=== PATIENT | male | born 1975 | race Caucasian/White ===

== ENCOUNTER 2017-08-15 18:03 | Emergency (ER) | payer SELFPAY ==
[~2017-08-15] VITALS: Ht 175.3 cm; Wt 111.1 kg
[~2017-08-15 18:03] MED LIST: HYDR-3454 PO; MUPI1OIN5 NS; ONDAN4ODT PO; OXYC-12 PO
--- OUTSIDE RECORDS SUMMARY | 2017-08-15 18:08 | XMS REPORT | Continuity of Care Document ---
Demographics Preferred Language Unknown Marital Status Unknown Orthodox Affiliation Unknown Race Unknown Ethnic Group Unknown Author Author [facility] Address Unknown Phone Unavailable Allergies Active Description Code Type Severity Reaction Onset Reported/Identified Relationship to Patient Clinical Status Yes No Known Drug Allergies [id number] Drug Allergy Unknown N/A 11/25/2012 Yes neoprene neoprene Mild N/A 01/11/2016 Medications There is no data. Problems Date Dx Coded Attending Type Code Diagnosis Diagnosed By 04/05/2009 461.0 ACUTE MAXILLARY SINUSITIS 04/05/2009 V70.5 PREEMPLOYMENT/ PRESCHOOL EXAM 06/04/2011 Ot 327.23 OBSTRUCTIVE SLEEP APNEA (ADULT) (PEDIATR 11/25/2012 JOSE REAVES MD Ot 550.90 UNILAT INGUINAL HERNIA 01/01/2016 JOSE REAVES MD Ot 550.90 UNILAT INGUINAL HERNIA 01/01/2016 JOSE REAVES MD Ot V72.83 EXAM PRE-OPERATIVE NEC 01/01/2016 JOSE REAVES MD Ot V74.8 SCREEN-BACTERIAL DIS NEC 01/01/2016 THI LÓPEZ MD Ot 813.05 FX RADIUS HEAD-CLOSED 01/01/2016 THI LÓPEZ MD Ot E000.8 OTHER EXTERNAL CAUSE STATUS 01/01/2016 THI LÓPEZ MD Ot E928.9 ACCIDENT NOS 01/02/2016 JOSE REAVES MD Ot 550.90 UNILAT INGUINAL HERNIA 01/02/2016 JOSE REAVES MD Ot V72.83 EXAM PRE-OPERATIVE NEC 01/02/2016 JOSE REAVES MD Ot V74.8 SCREEN-BACTERIAL DIS NEC 01/02/2016 THI LÓPEZ MD Ot 813.05 FX RADIUS HEAD-CLOSED 01/02/2016 THI LÓPEZ MD Ot E000.8 OTHER EXTERNAL CAUSE STATUS 01/02/2016 THI LÓPEZ MD Ot E928.9 ACCIDENT NOS 01/04/2016 GRETCHEN DPM, YAQUELIN Q Ot M72.2 PLANTAR FASCIAL FIBROMATOSIS 01/04/2016 GRETCHEN DPM, YAQUELIN Q Ot M76.61 ACHILLES TENDINITIS, RIGHT LEG 01/04/2016 GRETCHEN DPM, YAQUELIN Q Ot Z01.818 ENCOUNTER FOR OTHER PREPROCEDURAL EXAMIN 01/07/2016 GRETCHEN DPM, YAQUELIN Q Ot M72.2 PLANTAR FASCIAL FIBROMATOSIS 01/07/2016 GRETCHEN DPM, YAQUELIN Q Ot M76.61 ACHILLES TENDINITIS, RIGHT LEG 01/07/2016 GRETCHEN DPM, YAQUELIN Q Ot Z01.818 ENCOUNTER FOR OTHER PREPROCEDURAL EXAMIN 01/11/2016 JOSE REAVES MD Ot 550.90 UNILAT INGUINAL HERNIA 01/11/2016 JOSE REAVES MD Ot V72.83 EXAM PRE-OPERATIVE NEC 01/11/2016 JOSE REAVES MD Ot V74.8 SCREEN-BACTERIAL DIS NEC 01/11/2016 THI LÓPEZ MD Ot 813.05 FX RADIUS HEAD-CLOSED 01/11/2016 THI LÓPEZ MD Ot E000.8 OTHER EXTERNAL CAUSE STATUS 01/11/2016 THI LÓPEZ MD Ot E928.9 ACCIDENT NOS 01/11/2016 GRETCHEN DPM, YAQUELIN Q Ot M72.2 PLANTAR FASCIAL FIBROMATOSIS 01/11/2016 GRETCHEN DPM, YAQUELIN Q Ot M76.61 ACHILLES TENDINITIS, RIGHT LEG Procedures There is no data. Results Test Result Range Methicillin resistant Staphylococcus aureus (MRSA) screening culture - 11:25 Methicillin resistant Staphylococcus aureus (MRSA) screening culture NEG NRG Encounters ACCT No. Visit Date/Time Discharge Status Pt. Type Provider Facility Loc./Unit Complaint [id number] 04/05/2009 09:43:00 04/05/2009 23:59:59 CLS Outpatient [id number] 05/06/2012 15:10:05 RECURRING [id number] 01/11/2016 11:11:00 01/11/2016 16:40:00 DIS Outpatient GRETCHEN DPM, YAQUELIN Q [facility] PLANTAR FASCITIS [id number] 01/04/2016 05:38:00 01/04/2016 11:00:00 DIS Outpatient GRETCHEN DPM, YAQUELIN Q [facility] PREOP PLANTAR FASCITIS [id number] 11/25/2012 10:30:00 11/25/2012 16:30:00 DIS Outpatient JOSE REAVES MD [facility] SDC RIGHT INGUINAL HERNIA [id number] 11/23/2012 10:04:00 11/23/2012 23:59:59 CLS Outpatient JOSE REAVES MD [facility] PREOP RIGHT INGUINAL HERNIA [id number] 11/11/2012 10:12:00 11/11/2012 23:59:59 CLS Outpatient MARIBEL HENDRICKS, THI Devi [facility] RAD RT ELBOW RADIAL HEAD FRACTURE [id number] 11/06/2012 09:02:00 11/06/2012 23:59:59 CLS Outpatient [id number] 06/03/2011 19:56:00 Document Registration
[2017-08-15 18:29] LABS: BASOPHILS # (AUTO) 0.1 10^3/uL (0.0-0.1); BASOPHILS % (AUTO) 1 % (0-10); EOSINOPHILS # (AUTO) 0.3 10^3/uL (0.0-0.3); EOSINOPHILS % (AUTO) 3 % (0-10); HEMATOCRIT 42 % (40-54); HEMOGLOBIN 14.8 G/DL (13.3-17.7); LYMPHOCYTES # (AUTO) 2.6 X 10^3 (1.0-4.0); LYMPHOCYTES % (AUTO) 23 % (12-44); MEAN CORPUSCULAR HEMOGLOBIN 33 PG (25-34); MEAN CORPUSCULAR HGB CONC 36 G/DL (32-36); MEAN CORPUSCULAR VOLUME 91 FL (80-99); MEAN PLATELET VOLUME 9.7 FL (7.4-10.4); MONOCYTES # (AUTO) 0.7 X 10^3 (0.0-1.0); MONOCYTES % (AUTO) 7 % (0-12); NEUTROPHILS # (AUTO) 7.4 X 10^3 (1.8-7.8); NEUTROPHILS % (AUTO) 67 % (42-75); PLATELET COUNT 357 10^3/uL (130-400); RED BLOOD COUNT 4.56 10^6/uL (4.35-5.85); RED CELL DISTRIBUTION WIDTH 12.1 % (10.0-14.5); WHITE BLOOD COUNT 11.1 10^3/uL (4.3-11.0)
[2017-08-15] MEDS ORDERED: NS 250 ML (IVPB) BAG IV ONE (18:30)
[2017-08-15] MEDS ORDERED: IOHEXOL 350 MG/ML 100 ML (OMNIPAQUE 350) VIAL IV ONE (18:30)
[2017-08-15 18:41] LABS: PROTHROMBIN TIME PATIENT 13.1 SEC (12.2-14.7)
[2017-08-15 18:42] LABS: FIBRIN DEGRADATION PRODUCTS 0.3 UG/ML (0.00-0.49)
[2017-08-15 18:44] LABS: ALANINE AMINOTRANSFERASE 45 U/L (0-55); ALBUMIN 4.4 GM/DL (3.2-4.5); ALKALINE PHOSPHATASE 63 U/L (40-136); BILIRUBIN,TOTAL 1.3 MG/DL (0.1-1.0); BUN/CREATININE RATIO 14; CALCIUM 10.9 MG/DL (8.5-10.1); CARBON DIOXIDE 22 MMOL/L (21-32); CHLORIDE 102 MMOL/L (98-107); CREATININE SERUM 1.05 MG/DL (0.60-1.30); GFR ESTIMATED > 60; GLUCOSE 118 MG/DL (70-105); POTASSIUM 3.5 MMOL/L (3.6-5.0); SODIUM 138 MMOL/L (135-145); TOTAL PROTEIN 7.9 GM/DL (6.4-8.2)
--- NOTE | 2017-08-15 19:16 | ED Neurological Problem ---
General Chief Complaint: Neuro-Stroke Like Symptoms Stated Complaint: DIZZINESS/TINGLING R ARM Nursing Triage Note: PT AMBULATED TO [facility], ACCOMPANIED BY HIS GIRLFRIEND. GIRLFRIEND STATES THAT THE PT WAS WITH HIS FRIEND WHO IS A FORMER EMS AT APPROXIMATELY 1630 WHEN THE PT STARTED FEELING WEIRD. PT BECAME LIGHT HEADED, HAD TINGLING IN R ARM, AND TROUBLE WITH EXPRESSIVE APHASIA. THE GF STATED THE FRIEND THOUGHT THE PT'S BACK WAS OUT OF LINE AND POPPED THE PT'S BACK. SYMPTOMS DID NOT IMPROVE, SO THEY FRIEND CHECKED THE PT'S BLOOD SUGAR WHICH WAS 97. GIRLFRIEND RODE WITH PT TO ED. GIRLFRIEND STATES WHILE THE PT WAS DRIVING THE PT WOULD PUT HIS R ARM UP TO HIS HEAD AND THEN JUST LET IT DROP REPEATEDLY, AND WAS ALSO TRYING TO STOP THE CAR WITH BOTH FEET. LAST WELL KNOWN TIME WAS APPROXIMATELY 1630. Nursing Sepsis Screen: No Definite Risk Source: patient, family Exam Limitations: no limitations History of Present Illness Date Seen by Provider: Aug 15, 2017 Time Seen by Provider: 18:16 Initial Comments This 42 year old young man presents to the ER by private vehicle with sudden onset of difficulty speaking and confusion that started at approximately 16:30. He has been dieting and occasionally has low blood sugars, but his blood sugar on assessment was 92. He also reported associated numbness in his hands bilaterally. He had a friend pop his back and neck after the onset of symptoms. C-collar was placed by nursing staff on assessment. reports text messages starting at 16:30 did not make sense. When she was back with him she noted him leaning to the right while walking. While attempting to drive he was also repeatedly raising his right hand up to his head and dropping it. He was also attempting to operate the foot pedals with both feet. NIH stroke score was 2 for mild dysphasia and dysarthria. He also reports some mild alteration in his peripheral vision. Allergies and Home Medications Allergies Uncoded Allergies: neoprene (Allergy, Mild, 01/11/16) Home Medications Hydrocodone/Acetaminophen 1 Each Tablet, 1-2 TAB PO Q4-6HR PRN for PAIN Prescribed by: YAQUELIN GODINEZ on 01/11/16 4718 Patient Home Medication List Home Medication List Reviewed: Yes Review of Systems Constitutional: no symptoms reported Eyes: See HPI Ears, Nose, Mouth, Throat: mouth pain (dental infection) Respiratory: no symptoms reported Cardiovascular: no symptoms reported Gastrointestinal: nausea Genitourinary: no symptoms reported Musculoskeletal: no symptoms reported Skin: no symptoms reported Psychiatric/Neurological: See HPI Endocrine: No Symptoms Reported Hematologic/Lymphatic: No Symptoms Reported Past Rtrvgcy-Phmhbm-Gliwxs Hx Patient Social History Alcohol Use: Denies Use Recreational Drug Use: No Recent Foreign Travel: No Contact w/Someone Who Travel: No Recent Infectious Disease Expo: No Physical Abuse: No Sexual Abuse: No Past Medical History Surgeries: Yes (INGUINAL HERNIA) Respiratory: No Cardiac: No Neurological: No Reproductive Disorders: No Gastrointestinal: No Musculoskeletal: Yes (FEET) Endocrine: No HEENT: Yes (dental infection) Cancer: No Psychosocial: No Nursing Suicide Risk Score: 0 Integumentary: No Blood Disorders: No Physical Exam Vital Signs Vital Signs - First Documented 08/15/17 18:05 Temp 97.7 Pulse 102 Resp 18 B/P (MAP) 150/92 (111) O2 Delivery Room Air Capillary Refill : Less Than 3 Seconds General Appearance: WD/WN, mild distress HEENT: PERRL/EOMI, normal ENT inspection Respiratory: lungs clear, normal breath sounds, no respiratory distress, no accessory muscle use Cardiovascular: no edema, tachycardia Gastrointestinal: normal bowel sounds, non tender, soft Extremities: normal inspection, no pedal edema Neurologic/Psychiatric: no motor/sensory deficits, alert, normal mood/affect, oriented x 3 Crainal Nerves: PERRL, abnormal speech Coordination/Gait: normal finger to nose, other (normal heel to bhakta) Motor/Sensory: no motor deficit, no sensory deficit Skin: normal color, warm/dry Stroke NIH Stroke Scale Assessment Select: Initial Level of Consciousness: 0=Alert (0), Level of Consciousness- Questions: 0=Answers both month/age (0), LOC Commands: 0=Performs both tasks (0) , Visual [place]: 0=No visual loss (0), Facial Movement (Facial Paresis): 0= Normal symmetrical mnt (0), Motor Function-Arms Right: 0=No drift (0), Motor Function-Arms Left: 0=No drift (0), Motor Function-Legs Left: 0=No drift (0), Limb Ataxia: 0=Absent (0), Sensory: 0=Normal:no loss (0), Best Language: 1=Mild to moderat aphasia (1), Dysarthria: 1=Mild to moderate loss (1), Extinction & Inattention: 0=No abnormality (0), Total: 2 Focused Exam Lactate Level 08/15/17 20:36: Lactic Acid Level 2.68*H 08/15/17 22:30: Lactic Acid Level 1.07 Lactic Acid Level Laboratory Tests Test 08/15/17 20:36 08/15/17 22:30 Lactic Acid Level 2.68 MMOL/L (0.50-2.00) *H 1.07 MMOL/L (0.50-2.00) Progress/Results/Core Measures Lab Results Laboratory Tests Test 08/15/17 18:16 08/15/17 18:18 08/15/17 19:39 08/15/17 20:36 Range/Units Glucometer 94 70-110 MG/DL White Blood Count 11.1 H 4.3-11.0 10^3/uL Red Blood Count 4.56 4.35-5.85 10^6/uL Hemoglobin 14.8 13.3-17.7 G/DL Hematocrit 42 40-54 % Mean Corpuscular Volume 91 80-99 FL Mean Corpuscular Hemoglobin 33 25-34 PG Mean Corpuscular Hemoglobin Concent 36 32-36 G/DL Red Cell Distribution Width 12.1 10.0-14.5 % Platelet Count 357 130-400 10^3/uL Mean Platelet Volume 9.7 7.4-10.4 FL Neutrophils (%) (Auto) 67 42-75 % Lymphocytes (%) (Auto) 23 12-44 % Monocytes (%) (Auto) 7 0-12 % Eosinophils (%) (Auto) 3 0-10 % Basophils (%) (Auto) 1 0-10 % Neutrophils # (Auto) 7.4 1.8-7.8 X 10^3 Lymphocytes # (Auto) 2.6 1.0-4.0 X 10^3 Monocytes # (Auto) 0.7 0.0-1.0 X 10^3 Eosinophils # (Auto) 0.3 0.0-0.3 10^3/uL Basophils # (Auto) 0.1 0.0-0.1 10^3/uL Prothrombin Time 13.1 12.2-14.7 SEC INR Comment 1.0 0.8-1.4 Activated Partial Thromboplast Time 28 24-35 SEC D-Dimer 0.30 0.00-0.49 UG/ML Sodium Level 138 135-145 MMOL/L Potassium Level 3.5 L 3.6-5.0 MMOL/L Chloride Level 102 98-107 MMOL/L Carbon Dioxide Level 22 21-32 MMOL/L Anion Gap 14 5-14 MMOL/L Blood Urea Nitrogen 15 7-18 MG/DL Creatinine 1.05 0.60-1.30 MG/DL Estimat Glomerular Filtration Rate > 60 BUN/Creatinine Ratio 14 Glucose Level 118 H 70-105 MG/DL Calcium Level 10.9 H 8.5-10.1 MG/DL Total Bilirubin 1.3 H 0.1-1.0 MG/DL Aspartate Amino Transf (AST/SGOT) 31 5-34 U/L Alanine Aminotransferase (ALT/SGPT) 45 0-55 U/L Alkaline Phosphatase 63 40-136 U/L Troponin I < 0.30 <0.30 NG/ML C-Reactive Protein High Sensitivity 0.12 0.00-0.50 MG/DL Total Protein 7.9 6.4-8.2 GM/DL Albumin 4.4 3.2-4.5 GM/DL Serum Alcohol < 10 <10 MG/DL Urine Color YELLOW Urine Clarity CLEAR Urine pH 7 5-9 Urine Specific [place] 1.015 L 1.016-1.022 Urine Protein NEGATIVE NEGATIVE Urine Glucose (UA) NEGATIVE NEGATIVE Urine Ketones 3+ H NEGATIVE Urine Nitrite NEGATIVE NEGATIVE Urine Bilirubin NEGATIVE NEGATIVE Urine Urobilinogen NORMAL NORMAL MG/DL Urine Leukocyte Esterase 1+ H NEGATIVE Urine RBC (Auto) 2+ H NEGATIVE Urine RBC 5-10 H /HPF Urine WBC 0-2 /HPF Urine Squamous Epithelial Cells RARE /HPF Urine Crystals NONE /LPF Urine Bacteria NONE /HPF Urine Casts NONE /LPF Urine Mucus NEGATIVE /LPF Urine Culture Indicated NO Urine Opiates Screen NEGATIVE NEGATIVE Urine Oxycodone Screen NEGATIVE NEGATIVE Urine Methadone Screen NEGATIVE NEGATIVE Urine Propoxyphene Screen NEGATIVE NEGATIVE Urine Barbiturates Screen NEGATIVE NEGATIVE Ur Tricyclic Antidepressants Screen NEGATIVE NEGATIVE Urine Phencyclidine Screen NEGATIVE NEGATIVE Urine Amphetamines Screen POSITIVE H NEGATIVE Urine Methamphetamines Screen NEGATIVE NEGATIVE Urine Benzodiazepines Screen NEGATIVE NEGATIVE Urine Cocaine Screen NEGATIVE NEGATIVE Urine Cannabinoids Screen NEGATIVE NEGATIVE Lactic Acid Level 2.68 *H 0.50-2.00 MMOL/L Test 08/15/17 21:10 08/15/17 21:23 08/15/17 22:30 Range/Units CSF Tube Number 4 CSF Appearance CLEAR CSF Color COLORLESS CSF WBC 0 0-5 CELLS CSF RBC 0 0-0 CELLS CSF Lymphocytes % CSF Mononuclear WBCs % CSF Polynuclear WBCs % CSF Glucose 56 50-80 MG/DL CSF Total Protein 27 15-40 MG/DL Lactic Acid Level 1.07 0.50-2.00 MMOL/L My Orders Orders - ALLISON RUTHERFORD MD Cbc With Automated Diff (08/15/17 18:20) Protime With Inr (08/15/17 18:20) Partial Thromboplastin Time (08/15/17 18:20) Comprehensive Metabolic Panel (08/15/17 18:20) Fibrin Degradation Products (08/15/17 18:20) Troponin I (08/15/17 18:20) Ua Culture If Indicated (08/15/17 18:20) Chest 1 View, Ap/Pa Only (08/15/17 18:20) Ekg Tracing (08/15/17 18:20) Nothing By Mouth (08/16/17 Breakfast) Accucheck Stat ONCE (08/15/17 18:20) Saline Lock/Iv-Start (08/15/17 18:20) Saline Lock/Iv-Start (08/15/17 18:20) Vital Signs Stroke Patient Q15M (08/15/17 18:20) O2 (08/15/17 18:20) Intake & Output 06,14,22 (08/15/17 18:20) Monitor-Rhythm Ecg Trace Only (08/15/17 18:20) Dysphagia Screening Tool (08/15/17 18:20) Post Thrombolytic Adminstratio (08/15/17 18:20) Ct Angio Head/Neck (08/15/17 18:20) Ct Cervical Spine Wo (08/15/17 18:20) Alcohol (08/15/17 18:20) Drug Screen Stat (Urine) (08/15/17 18:20) Iohexol Injection (Omnipaque 350 Mg/Ml 1 (08/15/17 18:30) Ns (Ivpb) (Sodium Chloride 0.9%) (08/15/17 18:30) Pharmacy Communication (Pharmacy Communi (08/15/17 18:25) Hs C Reactive Protein (08/15/17 19:47) Lorazepam Injection (Ativan Injection) (08/15/17 20:00) Ondansetron Injection (Zofran Injectio (08/15/17 20:00) Blood Culture (08/15/17 20:02) Lactic Acid Analyzer (08/15/17 20:02) Ceftriaxone Injection (Rocephin Injectio (08/15/17 20:15) Tick Panel With Lyme Eia (08/15/17 20:24) Csf Cell Count (08/15/17 20:40) Csf Glucose (08/15/17 20:40) Csf Total Protein (08/15/17 20:40) Csf Culture (08/15/17 20:40) Virus Culture (08/15/17 20:40) Midazolam Injection (Versed Injection) (08/15/17 20:43) Lidocaine 2% Injection 20 Ml (Xylocaine (08/15/17 20:47) Fentanyl Injection (Sublimaze Injection (08/15/17 20:57) Ns Iv 1000 Ml (Sodium Chloride 0.9%) (08/15/17 23:26) Midazolam Injection (Versed Injection) (08/15/17 23:30) Fentanyl Injection (Sublimaze Injection (08/15/17 23:30) Lidocaine 2% Injection 20 Ml (Xylocaine (08/15/17 23:30) Medications Given in ED Current Medications Medications Dose Ordered Sig/Moon Route Start Time Stop Time Status Last Admin Dose Admin Ceftriaxone Sodium 2000 mg/ Sodium Chloride 100 ml @ 200 mls/hr ONCE ONCE IV 08/15/17 20:15 08/15/17 20:44 DC 08/15/17 21:31 200 MLS/HR Fentanyl Citrate 100 mcg ONCE ONCE IVP 08/15/17 23:30 08/15/17 23:31 DC 08/15/17 21:03 100 MCG Iohexol 75 ml ONCE ONCE IV 08/15/17 18:30 08/15/17 18:31 DC 08/15/17 19:04 75 ML Lidocaine HCl 20 ml ONCE ONCE INJ 08/15/17 23:30 08/15/17 23:31 DC 08/15/17 20:53 20 ML Lorazepam 0.5 mg ONCE ONCE IVP 08/15/17 20:00 08/15/17 20:01 DC 08/15/17 19:58 0.5 MG Midazolam HCl 5 mg ONCE ONCE IVP 08/15/17 23:30 08/15/17 23:31 DC 08/15/17 20:51 5 MG Ondansetron HCl 8 mg ONCE ONCE IVP 08/15/17 20:00 08/15/17 20:01 DC 08/15/17 19:58 8 MG Sodium Chloride 250 ml ONCE ONCE IV 08/15/17 18:30 08/15/17 18:31 DC 08/15/17 19:05 80 ML Sodium Chloride 1,000 ml @ 0 mls/hr Q0M ONCE IV 08/15/17 23:26 08/15/17 23:28 DC 08/15/17 21:17 1,000 MLS/HR Vital Signs/I&O 08/15/17 18:05 Temp 97.7 Pulse 102 Resp 18 B/P (MAP) 150/92 (111) O2 Delivery Room Air 08/16/17 00:00 Intake Total 100 ml Balance 100 ml Blood Pressure Mean: 111 Finger Stick Blood Glucose: 94 Blood Glucose Action Taken: rn notified Progress Note #1: Time: 20:27 Progress Note Stroke activation was paged during initial assessment of this patient. NIH stroke score was 2. Patient initially was fairly stable with minor deficits. However, at around 19:30 he became acutely more agitated and confused with more pronounced aphasia. Speech was becoming very garbled with no discernible words. He was also becoming rather agitated. Dr. Palma, stroke neurologist at [facility], was contacted at 19:40. Case was reviewed with him including the negative imaging studies. Although stroke cannot be completely ruled out at this point, he advised against TPA as most current research does not indicate TPA in strokes of this nature improve outcomes. At this point patient was also greater than 3 hours from time of onset which increases the risk with TPA. Further information was obtained from his common-law about the medications he is taking. He had been on phentermine at the same dose since May which explains the amphetamines in his urine. The remainder of the toxicology screen was negative. It was also noted that patient has been on Flagyl 6 days for a dental infection. Flagyl has known side effects of encephalitis and aseptic meningitis. For this reason Dr. Palma recommends lumbar puncture. Anesthesia has been consulted and LP is pending. Rocephin 2 g IV will be administered. Blood cultures and lactic acid are also being drawn. Patient has done some mowing this spring so tick bites are also possible. Tick panel has been ordered. Patient was given Ativan 0.5 mg IV to help with his agitation. He also became nauseated and is Zofran 8 mg IV was given. Progress Note #2: Time: 20:39 Progress Note Anesthesia is now present for LP. Progress Note #3: Time: 21:33 Progress Note LP was successfully performed by anesthesia. Patient did require Versed 5 mg and fentanyl 100 g during the procedure for agitation. He also required supplemental oxygen support. CSF cell counts are normal. Opening pressure was 27. Glucose and protein are pending. Patient is receiving 2 g of Rocephin. Progress Note #4: Time: 22:40 Progress Note Patient is now alert and able to talk some. He is confused. He does not know his family members or where he is but his speech is fairly clear. Case was reviewed with Dr. Rogers who believes patient would be best served in a facility with immediate neurological services and MRI. Case was discussed with Dr. Glass (hospitalist) and Dr. Lr (neurologist) at [facility]. They accept patient. Transfer is pending. CSF was clear with no sign of meningitis. Initial ECG Impression Date: Aug 15, 2017 Initial ECG Impression Time: 18:13 Initial ECG Rate: 94 Initial ECG Rhythm: Normal Sinus Initial ECG Intervals: Normal Initial ECG Impression: Normal Comment Normal sinus rhythm with no ST elevation or depression. No abnormal intervals or axis deviation. Diagonstic Imaging: CT Plain Films/CT/US/NM/MRI: head Comments CT head and neck viewed by me and report reviewed. See report below: NAME: SHAWNA FRANCO [facility] REC#: [id number] PT STATUS: REG ER : 1975 PHYSICIAN: ALLISON RUTHERFORD MD ADMIT DATE: 08/15/17/ER Draft Date of Exam:08/15/17 CT ANGIO HEAD/NECK PROCEDURE: CT angiography of the head and CT angiography of the neck with and without contrast. TECHNIQUE: Contiguous noncontrast images were obtained from the skull base through the vertex. After intravenous contrast administration, helical CT angiography of the neck was performed. Source data was reformatted into multiple MIP projections. Delayed post contrast acquisition was also obtained. INDICATION: Dysphagia. Bilateral hand numbness. Dizziness. Tingling. COMPARISON: None FINDINGS: CTA neck: Included portions of the aortic arch are unremarkable. The proximal portions of the bilateral common carotid arteries are heavily obscured secondary to metallic beam hardening artifact from contrast bolus within the left subclavian vein at the SVC. There is also mild motion artifact. The carotid bulbs are grossly unremarkable. The bilateral internal carotid arteries are patent. There is no evidence of intraluminal thrombosis, dissection, nor focal stenosis. Within the posterior circulation, the vertebral arteries appear to be codominant. The proximal portions of the vertebral arteries are also heavily obscured secondary to same reasons stated above. Otherwise, the mid and distal portions of the vertebral arteries appear to be patent. There is no evidence of dissection or intraluminal thrombosis. Bony structures show no acute abnormalities, although there is moderate image degradation secondary to motion artifact. Surrounding soft tissue structures are unremarkable. Included portions of the lung apices are clear. CTA [place] of [place]: There is normal appearance of the bilateral anterior and middle cerebral arteries. There is no evidence of intraluminal thrombosis, aneurysm, nor vascular malformation. Within the posterior circulation, there is normal appearance to the basilar artery. Posterior cerebral arteries are normal in appearance as well. There is no evidence of intraluminal thrombosis, aneurysm, nor vascular malformation. Posterior communicating arteries are not well visualized on either side. CT head: Ventricles and cortical sulci are normal in size and contour. There is no mass effect or midline shift. There is no loss of hernandez-white matter junction differentiation to suggest acute territorial infarct. There is no evidence of intra-or extra-axial intracranial hemorrhage. No extra-axial masses or fluid collections are seen. Postcontrast images show no abnormal areas of enhancement. Bony calvarium is intact. Included portions of the paranasal sinuses and mastoid air cells are clear. IMPRESSION: 1. Proximal portions of bilateral common carotid arteries and bilateral vertebral arteries are heavily obscured secondary to metallic beam hardening artifact and motion artifact, but otherwise, CTA of the head and neck is unremarkable. 2. No acute intracranial abnormality. No CT evidence of acute infarct, mass, nor hemorrhage. Dictated on workstation # [id number] Dict: 08/15/171909 Trans: 08/15/171929 PENDING SALE TO [facility] [id number] Interpreted by: ALEJANDRO NICKERSON MD Diagonstic Imaging: CT Plain Films/CT/US/NM/MRI: c-spine Comments CT cervical spine viewed by me and report reviewed. See report below: NAME: SHAWNA FRANCO [facility] REC#: [id number] PT STATUS: REG ER : 1975 PHYSICIAN: ALLISON RUTHERFORD MD ADMIT DATE: 08/15/17/ER Draft Date of Exam:08/15/17 CT CERVICAL SPINE WO PROCEDURE: CT cervical spine without contrast. TECHNIQUE: Multiple contiguous axial images were obtained through the cervical spine without the use of intravenous contrast. Sagittal and coronal reformations were then performed. INDICATION: Sudden onset dysphasia. Bilateral hand numbness. Dizziness. Tingling. COMPARISON: Radiograph dated 04/05/2012. FINDINGS: Evaluation with static alignment demonstrates straightening of normal lordotic curvature of the cervical spine. This may be related to positioning as well as spasm. There is no significant anterolisthesis or retrolisthesis. There is no evidence of jumped facets. Vertebral body heights are maintained. There is no evidence of acute fracture. No bony fragments are seen within the spinal canal. 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 There is also multilevel degenerative changes consisting of intervertebral disc height loss with anterior and posterior disc osteophyte complex formations. Prevertebral and paravertebral soft tissue structures are unremarkable. Lung apices are not significantly included. IMPRESSION: 1. No CT evidence of acute fracture or dislocation of the cervical spine. 2. Mild multilevel degenerative changes. Dictated on workstation # [id number] Dict: 08/15/171928 Trans: 08/15/171934 [facility] [id number] Interpreted by: ALEJANDRO NICKERSON MD Diagonstic Imaging: Xray Plain Films/CT/US/NM/MRI: chest Comments Chest x-ray viewed by me and report reviewed. See report below: NAME: SHAWNA FRANCO [facility] REC#: [id number] PT STATUS: REG ER : 1975 PHYSICIAN: ALLISON RUTHERFORD MD ADMIT DATE: 08/15/17/ER Draft Date of Exam:08/15/17 CHEST 1 VIEW, AP/PA ONLY INDICATION: Sudden onset dysphasia. COMPARISON: None. EXAMINATION: Single frontal radiographic view of the chest was obtained. FINDINGS: Low inspiratory volumes with crowding of central hilar structures. Given this, pulmonary vasculature is likely within normal limits. Cardiac silhouette appears mildly prominent. Lungs are otherwise clear. There is no large effusion or pneumothorax. Bony structures show no gross acute abnormality. IMPRESSION: Mild prominent appearance of the cardiac silhouette and pulmonary vasculature. This, however, is likely artifactual and related to low inspiratory volume and portable technique. Otherwise, no acute cardiopulmonary process. Dictated on workstation # [id number] Dict: 08/15/171940 Trans: 08/15/171954 [facility] [id number] Interpreted by: ALEJANDRO NICKERSON MD Departure Impression Primary Impression: Encephalopathy Additional Impressions: Dysphasia Dysarthria Agitation Disposition: 02 XFER SHT-TRM HOSP Condition: Stable Transfer Transfer Facility: [facility] Method of Transfer: EMS Departure-Patient Inst. Referrals: NO,LOCAL PHYSICIAN (PCP/Family) Primary Care Physician ALLISON RUTHERFORD MD Aug 15, 2017 19:16
--- NOTE | 2017-08-15 19:31 | Diagnostic Imaging Report ---
PROCEDURE: CT angiography of the head and CT angiography of the neck with and without contrast. TECHNIQUE: Contiguous noncontrast images were obtained from the skull base through the vertex. After intravenous contrast administration, helical CT angiography of the neck was performed. Source data was reformatted into multiple MIP projections. Delayed post contrast acquisition was also obtained. INDICATION: Dysphagia. Bilateral hand numbness. Dizziness. Tingling. COMPARISON: None FINDINGS: CTA neck: Included portions of the aortic arch are unremarkable. The proximal portions of the bilateral common carotid arteries are heavily obscured secondary to metallic beam hardening artifact from contrast bolus within the left subclavian vein at the SVC. There is also mild motion artifact. The carotid bulbs are grossly unremarkable. The bilateral internal carotid arteries are patent. There is no evidence of intraluminal thrombosis, dissection, nor focal stenosis. Within the posterior circulation, the vertebral arteries appear to be codominant. The proximal portions of the vertebral arteries are also heavily obscured secondary to same reasons stated above. Otherwise, the mid and distal portions of the vertebral arteries appear to be patent. There is no evidence of dissection or intraluminal thrombosis. Bony structures show no acute abnormalities, although there is moderate image degradation secondary to motion artifact. Surrounding soft tissue structures are unremarkable. Included portions of the lung apices are clear. CTA [place] of [place]: There is normal appearance of the bilateral anterior and middle cerebral arteries. There is no evidence of intraluminal thrombosis, aneurysm, nor vascular malformation. Within the posterior circulation, there is normal appearance to the basilar artery. Posterior cerebral arteries are normal in appearance as well. There is no evidence of intraluminal thrombosis, aneurysm, nor vascular malformation. Posterior communicating arteries are not well visualized on either side. CT head: Ventricles and cortical sulci are normal in size and contour. There is no mass effect or midline shift. There is no loss of hernandez-white matter junction differentiation to suggest acute territorial infarct. There is no evidence of intra-or extra-axial intracranial hemorrhage. No extra-axial masses or fluid collections are seen. Postcontrast images show no abnormal areas of enhancement. Bony calvarium is intact. Included portions of the paranasal sinuses and mastoid air cells are clear. IMPRESSION: 1. Proximal portions of bilateral common carotid arteries and bilateral vertebral arteries are heavily obscured secondary to metallic beam hardening artifact and motion artifact, but otherwise, CTA of the head and neck is unremarkable. 2. No acute intracranial abnormality. No CT evidence of acute infarct, mass, nor hemorrhage. Dictated by: Dictated on workstation # [id number]
--- NOTE | 2017-08-15 19:35 | Diagnostic Imaging Report ---
PROCEDURE: CT cervical spine without contrast. TECHNIQUE: Multiple contiguous axial images were obtained through the cervical spine without the use of intravenous contrast. Sagittal and coronal reformations were then performed. INDICATION: Sudden onset dysphasia. Bilateral hand numbness. Dizziness. Tingling. COMPARISON: Radiograph dated 04/05/2012. FINDINGS: Evaluation with static alignment demonstrates straightening of normal lordotic curvature of the cervical spine. This may be related to positioning as well as spasm. There is no significant anterolisthesis or retrolisthesis. There is no evidence of jumped facets. Vertebral body heights are maintained. There is no evidence of acute fracture. No bony fragments are seen within the spinal canal. 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 There is also multilevel degenerative changes consisting of intervertebral disc height loss with anterior and posterior disc osteophyte complex formations. Prevertebral and paravertebral soft tissue structures are unremarkable. Lung apices are not significantly included. IMPRESSION: 1. No CT evidence of acute fracture or dislocation of the cervical spine. 2. Mild multilevel degenerative changes. Dictated by: Dictated on workstation # [id number]
[2017-08-15 19:46] LABS: BILIRUBIN,URINE NEGATIVE (NEGATIVE); CLARITY,URINE CLEAR; COLOR,URINE YELLOW; GLUCOSE, URINE (UA) NEGATIVE (NEGATIVE); KETONES,URINE 3+ (NEGATIVE); LEUKOCYTE ESTERASE ,URINE 1+ (NEGATIVE); NITRITE,URINE NEGATIVE (NEGATIVE); PH,URINE 7 (5-9); PROTEIN,URINE NEGATIVE (NEGATIVE); UROBILINOGEN,URINE NORMAL (NORMAL)
[2017-08-15 19:53] LABS: SQUAMOUS EPITHELIAL CELL,UR RARE /HPF; WBC,URINE 0-2 /HPF
--- NOTE | 2017-08-15 19:55 | Diagnostic Imaging Report ---
INDICATION: Sudden onset dysphasia. COMPARISON: None. EXAMINATION: Single frontal radiographic view of the chest was obtained. FINDINGS: Low inspiratory volumes with crowding of central hilar structures. Given this, pulmonary vasculature is likely within normal limits. Cardiac silhouette appears mildly prominent. Lungs are otherwise clear. There is no large effusion or pneumothorax. Bony structures show no gross acute abnormality. IMPRESSION: Mild prominent appearance of the cardiac silhouette and pulmonary vasculature. This, however, is likely artifactual and related to low inspiratory volume and portable technique. Otherwise, no acute cardiopulmonary process. Dictated by: Dictated on workstation # [id number]
[2017-08-15 20:00] LABS: AMPHETAMINE SCREEN, URINE POSITIVE (NEGATIVE); BARBITURATE SCREEN URINE NEGATIVE (NEGATIVE); BENZODIAZEPINES SCREEN URINE NEGATIVE (NEGATIVE); CANNABINOID SCREEN, URINE NEGATIVE (NEGATIVE); COCAINE SCREEN URINE NEGATIVE (NEGATIVE); METHADONE STAT NEGATIVE (NEGATIVE); METHAMPHETAMINE SCREEN URINE S NEGATIVE (NEGATIVE); OPIATE SCREEN URINE NEGATIVE (NEGATIVE); OXYCODONE STAT NEGATIVE (NEGATIVE); PROPOXYPHENE STAT NEGATIVE (NEGATIVE); TRICYCLIC ANTIDEPRESSANTS SCRE NEGATIVE (NEGATIVE)
[2017-08-15] MEDS ORDERED: LORazepam INJ 2 MG/ML (ATIVAN) VIAL IVP ONE (20:00)
[2017-08-15] MEDS ORDERED: ONDANSETRON 4 MG/2 ML (SDV) Z0FRAN IVP ONE (20:00)
[2017-08-15] MEDS ORDERED: cefTRIAXone INJECTION 2,000 MG in NS (IVPB) 100 ML IV ONE (20:15)
[2017-08-15] MEDS ORDERED: MIDAZOLAM 5 MG/5 ML (VERSED) VIAL ONE (20:43)
[2017-08-15] MEDS ORDERED: LIDOCAINE 2% 20 ML (XYLOCAINE) VIAL ONE (20:47)
[2017-08-15] MEDS ORDERED: fentaNYL INJECTION 100 MCG/2 ML AMP ONE (20:57)
[2017-08-15 21:22] LABS: APPEARANCE,CSF CLEAR; COLOR,CSF COLORLESS; CSF TUBE NUMBER 4; RED BLOOD CELL,CSF 0 CELLS (0-0); WHITE BLOOD CELL,CSF 0 CELLS (0-5)
[2017-08-15 21:41] LABS: CSF GLUCOSE 56 MG/DL (50-80); CSF TOTAL PROTEIN 27 MG/DL (15-40)
[2017-08-15] MEDS ORDERED: NS IV 1000 ML 1,000 ML IV ONE (23:26)
[2017-08-15] MEDS ORDERED: fentaNYL INJECTION 100 MCG/2 ML AMP IVP ONE (23:30)
[2017-08-15] MEDS ORDERED: LIDOCAINE 2% 20 ML (XYLOCAINE) VIAL INJ ONE (23:30)
[2017-08-15] MEDS ORDERED: MIDAZOLAM 5 MG/5 ML (VERSED) VIAL IVP ONE (23:30)
[2017-08-15 23:56] VITALS: BP 153/108
== END 2017-08-15 23:56 | disposition short-term general hospital (02) ==
LOC: EDUNIT# 18:03 → ER 18:05
DX: G93.40 Encephalopathy, unspecified (principal); R47.02 Dysphasia; R47.1 Dysarthria and anarthria; R45.1 Restlessness and agitation; R29.702 NIHSS score 2; Z86.73 Personal history of transient ischemic attack (TIA), and cerebral infarction without residual deficits; Z98.818 Other dental procedure status; Z88.8 Allergy status to other drugs, medicaments and biological substances
CPT/HCPCS: 36415; 70496; 70498; 71045; 72125; 80053; 80306; 80320; 81000; 82945; 82962; 83605; 84157; 84484; 85025; 85379; 85610; 85730; 86141; 86618; 86666; 86668; 86757; 87040; 87070; 87205; 87252; 89051; 93005; 93041; 96361; 96365; 96375; 99291

== ENCOUNTER 2020-08-22 02:41 | Emergency (ER) | payer BC ==
[~2020-08-22] VITALS: Ht 175.2 cm; Wt 122.4 kg
[~2020-08-22 02:41] MED LIST changes: -HYDR-3454 PO; +HYDR-3455 PO
[2020-08-22 02:50] VITALS: BP 153/122
[2020-08-22] MEDS ORDERED: ONDANSETRON 4 MG/2 ML (SDV) Z0FRAN ONE (02:54)
[2020-08-22] MEDS ORDERED: ONDANSETRON 4 MG/2 ML (SDV) Z0FRAN IVP ONE (03:00)
[2020-08-22 03:06] LABS: BASOPHILS # (AUTO) 0.1 10^3/uL (0.0-0.1); BASOPHILS % (AUTO) 1 % (0-10); EOSINOPHILS # (AUTO) 0.6 10^3/uL (0.0-0.3); EOSINOPHILS % (AUTO) 6 % (0-10); HEMATOCRIT 43 % (40-54); HEMOGLOBIN 14.7 g/dL (13.3-17.7); LYMPHOCYTES # (AUTO) 3.8 10^3/uL (1.0-4.0); LYMPHOCYTES % (AUTO) 33 % (12-44); MEAN CORPUSCULAR HEMOGLOBIN 32 pg (25-34); MEAN CORPUSCULAR HGB CONC 34 g/dL (32-36); MEAN CORPUSCULAR VOLUME 95 fL (80-99); MEAN PLATELET VOLUME 9.4 fL (9.0-12.2); MONOCYTES # (AUTO) 0.9 10^3/uL (0.0-1.0); MONOCYTES % (AUTO) 8 % (0-12); NEUTROPHILS % (AUTO) 52 % (42-75); PLATELET COUNT 374 10^3/uL (130-400); WHITE BLOOD COUNT 11.5 10^3/uL (4.3-11.0)
--- NOTE | 2020-08-22 03:08 | ED Neurological Problem ---
General Stated Complaint: LEFT ARM TINGELY,MIGRAINE,NO PERIPHERAL VISION Source: patient Exam Limitations: no limitations History of Present Illness Date Seen by Provider: Aug 22, 2020 Time Seen by Provider: 02:49 Initial Comments Patient to the ER by private conveyance from home with significant other chief complaint that he started having a headache, visual disturbances with loss of perception of his left peripheral vision while sitting on the couch about 10:00 tonight. He also started having some paresthesias feeling numbness and tingling of the left face and left arm down to his hand. No history of trauma. This happened similar in the past 3 years ago when he was worked up and found to have a migraine headache. He took a dose of Topamax 50 mg about an hour prior to arrival thinking it might help. No history of coronary disease or stroke. He is not a smoker. Only pain he is having is in his head that is centerline, nonthrobbing. He is known to [facility] for [facility]. He has been told in the past by urgent care that maybe he was hypoventilating and that was what was causing his symptoms. He notes he has been having a lot of stress because his live-in girlfriend has been out of work due to a broken leg. He says wh enever the stress gets worse so his symptoms and migraines. Patient's girlfriend notes that 3 years ago when this happened they went to the neurologist at [facility] and after a work-up with her allowed to go home. 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 He is not on any medications at this time. Other than the dose of topiramate that he took tonight he says he has not been on that for many months. Allergies and Home Medications Allergies Uncoded Allergies: neoprene (Allergy, Mild, 01/11/16) Home Medications Hydrocodone/Acetaminophen 1 Each Tablet, 1-2 TAB PO Q4-6HR PRN for PAIN Prescribed by: YAQUELIN GODINEZ on 01/11/16 2237 Patient Home Medication List Home Medication List Reviewed: Yes Review of Systems Review of Systems Constitutional: No chills, No diaphoresis Eyes: See HPI, Blindness; Denies Decreased Acuity, Denies Pain Ears, Nose, Mouth, Throat: denies ear pain, denies ear discharge Respiratory: No cough, No short of breath Cardiovascular: No chest pain, No edema Gastrointestinal: No abdominal pain, No constipation, No diarrhea; nausea; No vomiting Genitourinary: No discharge, No dysuria Musculoskeletal: No back pain, No joint pain Psychiatric/Neurological: Anxiety; Denies Depressed Endocrine: Denies Flushing, Denies Intolerance to Cold, Denies Intolerance to Heat Hematologic/Lymphatic: Denies Anemia, Denies Blood Clots All Other Systems Reviewed Negative Unless Noted: Yes Past Qnegtwj-[id number]-Wiasgr Hx Patient Social History Alcohol Use: Denies Use Smoking Status: Never a Smoker Past Medical History Surgeries: Yes (INGUINAL HERNIA) Respiratory: No Cardiac: No Neurological: No Reproductive Disorders: No Gastrointestinal: No Musculoskeletal: Yes (FEET) Endocrine: No HEENT: Yes (dental infection) Cancer: No Psychosocial: No Integumentary: No Blood Disorders: No Physical Exam Vital Signs Vital Signs - First Documented 08/22/20 03:45 O2 Flow Rate 2.00 Capillary Refill : Height, Weight, BMI Height: 5'9.00" Weight: 245lbs. 0.0oz. [id number]; 41.10 BMI Method:Stated General Appearance: WD/WN, moderate distress HEENT: PERRL/EOMI, pharynx normal Neck: full range of motion, normal inspection Respiratory: lungs clear, normal breath sounds, no respiratory distress, no accessory muscle use Cardiovascular: normal peripheral pulses, regular rate, rhythm Peripheral Pulses: 2+ Radial Pulses (R), 2+ Radial Pulses (L) Gastrointestinal: non tender, soft Extremities: normal range of motion, non-tender, normal capillary refill Neurologic/Psychiatric: alert, normal mood/affect, oriented x 3; No abnormal cerebellar tests, No abnormal gait; other (Diminished visual clinton in the left eye laterally) Crainal Nerves: normal hearing, normal speech, PERRL Coordination/Gait: normal finger to nose, normal gait Motor/Sensory: no motor deficit, no pronator drift, sensory deficit (Left eye lateral field diminished) Skin: normal color, warm/dry Stroke Onset of Symptoms Date of Onset of Symptoms: Aug 22, 2020 Time of Symptom Onset: 22:00 Onset of Symptoms: Yes Symptoms onset unknown: No NIH Stroke Scale Assessment Select: Initial Level of Consciousness: 0=Alert (0), Level of Consciousness- Questions: 0=Answers both month/age (0), LOC Commands: 0=Performs both tasks (0), Gaze: Normal (0), Visual [place]: 1=Partial hemianopia (1), Facial Movement (Facial Paresis): 0=Normal symmetrical mnt (0), Motor Function-Arms Right: 0=No drift (0), Motor Function-Arms Left: 0=No drift (0), Motor Function-Legs Right: 0=No drift (0), Motor Function-Legs Left: 0=No drift (0), Limb Ataxia: 0=Absent (0), Sensory: 0=Normal:no loss (0), Best Language: 0=No aphasia (0), Dysarthria: 0=Normal (0), Extinction & Inattention: 0=No abnormality (0), Total: 1 Stroke Thrombolytic Exclusion Age 18 or Over: No Acute intenal hemorrhage: No History of CVA: No Uncontrolled Coagulation Defec: No Intracranial Hemorrhage: No Severe Hypertension: No GI or Bleed: No Subarachnoid Hemorrhage: No Intracranial Neoplasm/Aneurysm: No Oral Anticoagulants: No Surgery or Trauma: No Puncture of Non-Compressible V: No Recent CPR: No Diabetic Hemorrhagic Retinopat: No Organ Biopsy: No Recent Obstetric Delivery: No Glucose: No (99) Significant Hepatic Dysfunctio: No NIH Stoke Scale >22: No Bacterial Endocarditis: No Pericarditis: No Improving Symptoms: Yes Platelets: No TPA Contraindication: No IV - TPa Received IV - TPa Procedure Performed?: No (Lack of evidence for benefit of use of TPA.) Progress/Results/Core Measures Results/Orders Lab Results Laboratory Tests Test 08/22/20 02:54 08/22/20 02:55 Range/Units Glucometer 99 70-110 MG/DL White Blood Count 11.5 H 4.3-11.0 10^3/uL Red Blood Count 4.56 4.30-5.52 10^6/uL Hemoglobin 14.7 13.3-17.7 g/dL Hematocrit 43 40-54 % Mean Corpuscular Volume 95 80-99 fL Mean Corpuscular Hemoglobin 32 25-34 pg Mean Corpuscular Hemoglobin Concent 34 32-36 g/dL Red Cell Distribution Width 12.1 10.0-14.5 % Platelet Count 374 130-400 10^3/uL Mean Platelet Volume 9.4 9.0-12.2 fL Immature Granulocyte % (Auto) 1 % Neutrophils (%) (Auto) 52 42-75 % Lymphocytes (%) (Auto) 33 12-44 % Monocytes (%) (Auto) 8 0-12 % Eosinophils (%) (Auto) 6 0-10 % Basophils (%) (Auto) 1 0-10 % Neutrophils # (Auto) 6.0 1.8-7.8 10^3/uL Lymphocytes # (Auto) 3.8 1.0-4.0 10^3/uL Monocytes # (Auto) 0.9 0.0-1.0 10^3/uL Eosinophils # (Auto) 0.6 H 0.0-0.3 10^3/uL Basophils # (Auto) 0.1 0.0-0.1 10^3/uL Immature Granulocyte # (Auto) 0.1 0.0-0.1 10^3/uL Prothrombin Time 12.4 12.2-14.7 SEC INR Comment 0.9 0.8-1.4 Activated Partial Thromboplast Time 31 24-35 SEC D-Dimer < 0.27 0.00-0.49 UG/ML Sodium Level 140 135-145 MMOL/L Potassium Level 3.8 3.6-5.0 MMOL/L Chloride Level 104 98-107 MMOL/L Carbon Dioxide Level 25 21-32 MMOL/L Anion Gap 11 5-14 MMOL/L Blood Urea Nitrogen 11 7-18 MG/DL Creatinine 1.02 0.60-1.30 MG/DL Estimat Glomerular Filtration Rate > 60 BUN/Creatinine Ratio 11 Glucose Level 106 H 70-105 MG/DL Calcium Level 9.5 8.5-10.1 MG/DL Corrected Calcium 9.3 8.5-10.1 MG/DL Total Bilirubin 1.0 0.1-1.0 MG/DL Aspartate Amino Transf (AST/SGOT) 31 5-34 U/L Alanine Aminotransferase (ALT/SGPT) 46 0-55 U/L Alkaline Phosphatase 74 40-136 U/L Troponin I < 0.028 <0.028 NG/ML Total Protein 7.9 6.4-8.2 GM/DL Albumin 4.2 3.2-4.5 GM/DL My Orders Orders - MIKAYLA VERDUZCO Ondansetron Injection (Zofran Injectio (08/22/20 03:00) Ondansetron Injection (Zofran Injectio (08/22/20 02:54) Code/Resuscitation (08/22/20 03:01) Cbc With Automated Diff (08/22/20 03:01) Protime With Inr (08/22/20 03:01) Partial Thromboplastin Time (08/22/20 03:01) Comprehensive Metabolic Panel (08/22/20 03:01) Fibrin Degradation Products (08/22/20 03:01) Troponin I (08/22/20 03:01) Ua Culture If Indicated (08/22/20 03:01) Chest 1 View, Ap/Pa Only (08/22/20 03:01) Ekg Tracing (08/22/20 03:01) Nothing By Mouth (08/22/20 Breakfast) Accucheck Stat ONCE (08/22/20 03:01) Ed Iv/Invasive Line Start (08/22/20 03:01) Ed Iv/Invasive Line Start (08/22/20 03:01) Vital Signs Stroke Patient Q15M (08/22/20 03:01) Ct Head Wo-R/O Stroke (08/22/20 03:01) O2 (08/22/20 03:01) Intake & Output 06,14,22 (08/22/20 03:01) Monitor-Rhythm Ecg Trace Only (08/22/20 03:01) Dysphagia Screening Tool (08/22/20 03:01) Lipid Panel (08/23/20 06:00) Fentanyl Inj (Sublimaze Injection) (08/22/20 03:30) Drug Screen Stat (Urine) (08/22/20 03:27) Ed Iv/Invasive Line Start (08/22/20 03:29) Ns Iv 500 Ml (Sodium Chloride 0.9%) (08/22/20 03:30) Promethazine Injection (Phenergan Injec (08/22/20 04:00) Promethazine Injection (Phenergan Injec (08/22/20 03:41) Ed Iv/Invasive Line Start (08/22/20 04:16) Ns Iv 1000 Ml (Sodium Chloride 0.9%) (08/22/20 04:30) Ct Angio Head/Neck (08/22/20 04:16) Iohexol Injection (Omnipaque 350 Mg/Ml 1 (08/22/20 05:00) Received Contrast (Hold Metformin- Contr (08/22/20 05:00) Sodium Chloride Flush (Catheter Flush Sy (08/22/20 05:00) Ns (Ivpb) (Sodium Chloride 0.9% Ivpb Bag (08/22/20 05:00) Medications Given in ED Current Medications Medications Dose Ordered Sig/Moon Route Start Time Stop Time Status Last Admin Dose Admin Fentanyl Citrate 50 mcg ONCE ONCE IVP 08/22/20 03:30 08/22/20 03:31 DC 08/22/20 03:28 50 MCG Iohexol 100 ml ONCE ONCE IV 08/22/20 05:00 08/22/20 05:01 08/22/20 04:51 75 ML Ondansetron HCl 8 mg ONCE ONCE IVP 08/22/20 03:00 08/22/20 03:02 DC 08/22/20 03:03 8 MG Promethazine HCl 25 mg ONCE ONCE IVP 08/22/20 04:00 08/22/20 04:01 DC 08/22/20 03:49 25 MG Sodium Chloride 10 ml NEEDED PRN IV 08/22/20 05:00 08/22/20 04:52 10 ML Sodium Chloride 100 ml ONCE ONCE IV 08/22/20 05:00 08/22/20 05:01 08/22/20 04:51 80 ML Sodium Chloride 500 ml @ 0 mls/hr Q0M ONCE IV 08/22/20 03:30 08/22/20 03:31 DC 08/22/20 03:42 500 MLS/HR Vital Signs/I&O 08/22/20 08/22/20 08/22/20 02:50 02:50 03:45 Temp 36.4 Pulse 107 107 Resp 18 18 B/P (MAP) 153/122 (132) 153/122 Pulse Ox 96 96 98 O2 Delivery Room Air Nasal Cannula O2 Flow Rate 2.00 Progress Progress Note #1: Time: 03:10 Progress Note At rest patient has a headache that he describes as similar to his migraines but comes with visual field disturbance, paresthesias down his left face and left hand. He has sensation intact that is symmetric to the contralateral side when we test his face and hand. This could be an atypical migraine however we did activate a stroke and he has an NIH of one-point for his visual field disturbances. We will get a CT of his head. His glucose was 99. Other possibilities could be a subarachnoid hemorrhage. He has been under a lot of stress which could lead more towards triggering complex migraine. Zofran 8 mg were ordered for his nausea. His blood pressure significantly elevated around 158/109 on arrival. Afebrile, aseptic vital signs otherwise. 2017 he presented with a similar migraine but with right sided numbness and weakness in his upper extremity. At that time he had CT of the head, lumbar puncture and He was also given an NIH of 2 points for his mild dysphagia and dysarthria. He did at that time report alteration of his peripheral vision. CT at that time was normal. He is requesting something for pain so we will give him 50 mcg of fentanyl. Progress Note #2: Time: 03:48 Progress Note The fentanyl did help his headache some. He is now resting more comfortably. He still having some nausea so we will put 25 mg of Phenergan and his half liter of IV fluids. His blood pressures come down to 150/95. Hopefully the Phenergan will help with his headache as well as his nausea. Initial ECG Impression Date: Aug 22, 2020 Initial ECG Impression Time: 02:53 Initial ECG Rate: 106 Initial ECG Rhythm: S.Tach Initial ECG Intervals: Normal Initial ECG Impression: Normal Comment Sinus tachycardia without clinically relevant ST changes. Diagnostic Imaging Diagonstic Imaging: Xray Plain Films/CT/US/NM/MRI: chest Comments No acute cardiopulmonary process on 1 view chest x-ray Reviewed: Reviewed by Me Diagonstic Imaging: CT (Without IV contrast) Plain Films/CT/US/NM/MRI: head Comments No acute intracranial hemorrhage, mass-effect, midline shift or tumor. No calvarial fracture. Reviewed: Reviewed [place] Study, Reviewed by Me Diagonstic Imaging: CT (angiogram) Plain Films/CT/US/NM/MRI: head (neck) Comments No acute abnormality. Atherosclerotic plaque at the right carotid bulb without hemodynamically significant stenosis. Reviewed: Reviewed by Me Consults : Consults Notes [id number]: Discussed the case with Dr. Gallegos, stroke neurologist at [facility] territory sales professional. We discussed the patient's presentation, clinical exam and history. She feels that the still important we treat this like a stroke at this time because of the visual field disturbance and the patient's hypertension. Her concern would be about posterior circulation. She thinks it merits an MRI. She wants the patient to have a CT angiogram now in the ER. If it is unremarkable she would be okay with sending the patient home with aspirin daily and follow-up in the primary care office to get an MRI set up on an outpatient evaluation basis. Departure Impression Primary Impression: Headache Qualified Codes: R51.9 - Headache, unspecified Additional Impressions: Limited peripheral vision of left eye Arm paresthesia, left Disposition: 01 HOME, SELF-CARE Condition: Stable Departure-Patient Inst. Decision time for Depature: 05:03 Referrals: LISA BRENNER MD Primary Care Physician Patient Instructions: Migraines (DC) Add. Discharge Instructions: Neurologist is still concerned about your visual deficit and would like you to get set up to do an MRI on the outpatient basis through your primary care doctor's office. Call Dr. Brenner and request follow-up. Tylenol 1000 mg every 8 hours as necessary. Phenergan 1 tablet every 6 hours as necessary for severe headache or nausea. Return to the ER promptly if you have new or worsening symptoms. Scripts Promethazine HCl (Promethazine Tablet) 25 Mg Tablet 25 MG PO Q6H PRN for NAUSEA/VOMITING, #12 TAB 0 Refills Prov: MIKAYLA VERDUZCO 08/22/20 Work/School Note: Work Release Form Date Seen in the Emergency Department: Aug 22, 2020 Return to Work: August 27, 2020 Restrictions: Need Release from Doctor Copy Copies To 1: LISA BRENNER MD, TITUS J Aug 22, 2020 03:08
[2020-08-22 03:21] LABS: ALANINE AMINOTRANSFERASE 46 U/L (0-55); ALBUMIN 4.2 GM/DL (3.2-4.5); ALKALINE PHOSPHATASE 74 U/L (40-136); BUN/CREATININE RATIO 11; CALCIUM 9.5 MG/DL (8.5-10.1); CARBON DIOXIDE 25 MMOL/L (21-32); CHLORIDE 104 MMOL/L (98-107); CREATININE SERUM 1.02 MG/DL (0.60-1.30); GFR ESTIMATED > 60; GLUCOSE 106 MG/DL (70-105); POTASSIUM 3.8 MMOL/L (3.6-5.0); SODIUM 140 MMOL/L (135-145); TOTAL PROTEIN 7.9 GM/DL (6.4-8.2)
[2020-08-22] MEDS ORDERED: fentaNYL INJ 100 MCG/2 ML AMP IVP ONE (03:30)
[2020-08-22] MEDS ORDERED: NS IV 500 ML 500 ML IV ONE (03:30)
[2020-08-22 03:37] LABS: INR 0.9 (0.8-1.4); PARTIAL THROMBOPLASTIN TIME 31 SEC (24-35); PROTHROMBIN TIME PATIENT 12.4 SEC (12.2-14.7)
[2020-08-22] MEDS ORDERED: PROMETHAZINE INJ 25 MG/ML (PHENERGAN) AMP ONE (03:41)
[2020-08-22 03:58] LABS: FIBRIN DEGRADATION PRODUCTS < 0.27 UG/ML (0.00-0.49)
[2020-08-22] MEDS ORDERED: PROMETHAZINE INJ 25 MG/ML (PHENERGAN) AMP IVP ONE (04:00)
[2020-08-22] MEDS ORDERED: NS IV 1000 ML 1,000 ML IV SCH (04:30)
[2020-08-22] MEDS ORDERED: CATHETER FLUSH 10 ML SYR IV PRN (05:00)
[2020-08-22] MEDS ORDERED: NS 100 ML (IVPB) BAG IV ONE (05:00)
[2020-08-22] MEDS ORDERED: IOHEXOL 350 MG/ML 100 ML (OMNIPAQUE 350) VIAL IV ONE (05:00)
[2020-08-22] MEDS ORDERED: HOLD METFORMIN - RECEIVED CONTRAST 20 ML VIAL IV SCH (05:00)
[2020-08-22] MEDS ORDERED: PROM25TA14 PO ×2 (05:04→05:09)
[2020-08-22 05:18] VITALS: BP 152/88
--- NOTE | 2020-08-22 06:44 | Diagnostic Imaging Report ---
PROCEDURE: CT angiography of the head and CT angiography of the neck with and without contrast. TECHNIQUE: Contiguous noncontrast images were obtained from the skull base through the vertex. After intravenous contrast administration, helical CT angiography of the neck was performed. Source data was reformatted into 3D MIP projections. Delayed post contrast acquisition was also obtained. Auto Exposure Controls were utilized during the CT exam to meet ALARA standards for radiation dose reduction. INDICATION: Migraines. Left peripheral vision deficit The origins of the brachiocephalic vessels are widely patent. The carotid and vertebral arteries are widely patent with only mild disease seen at the carotid bifurcations with no significant stenosis or vessel irregularity. There is no dissection evident. The vertebral arteries are patent. Intracranial view shows the distal internal carotid and vertebral arteries to be widely patent as is the basilar artery. There is no evidence for aneurysm, AVM, neovascularity or major vessel occlusion. The ventricles are normal in size, shape, and position. There is no acute parenchymal hemorrhage, edema, mass or abnormal parenchymal enhancement. There is no extra-axial mass or hemorrhage. IMPRESSION: Essentially normal CT angiography of the head and neck with minimal disease at the carotid bifurcations. Dictated by: Dictated on workstation # [id number]
--- NOTE | 2020-08-22 07:24 | Diagnostic Imaging Report ---
PROCEDURE: CT head wo r/o stroke. TECHNIQUE: Multiple contiguous axial images were obtained through the brain without the use of intravenous contrast. Auto Exposure Controls were utilized during the CT exam to meet ALARA standards for radiation dose reduction. INDICATION: Neurological deficit. Migraine The ventricles are normal in size, shape and position. There is no acute parenchymal hemorrhage, edema or mass. There is no extra-axial mass or hemorrhage. IMPRESSION: Normal CT of the head. Dictated by: Dictated on workstation # [id number]
--- NOTE | 2020-08-22 07:24 | Diagnostic Imaging Report ---
INDICATION: Paresthesias of the left arm and face. Upright chest shows normal heart size and vascularity. The lungs are clear. There is no effusion or pneumothorax. There is no acute bony abnormality. IMPRESSION: No acute abnormality is seen. The chest is similar to a study from 08/15/2017. Dictated by: Dictated on workstation # [id number]
== END 2020-08-22 05:19 | disposition home or self-care (01) ==
LOC: EDUNIT# 02:41 → ER 02:45
DX: R51.9 Headache, unspecified (principal); H54.7 Unspecified visual loss; R20.2 Paresthesia of skin; Z88.8 Allergy status to other drugs, medicaments and biological substances
CPT/HCPCS: 36415; 70450; 70496; 70498; 71045; 80053; 82947; 84484; 85025; 85379; 85610; 85730; 93005; 93041

== ENCOUNTER 2023-03-18 01:04 | Emergency (ER) | payer BC, OTHER ==
[~2023-03-18] VITALS: Ht 175.3 cm; Wt 118.0 kg
[~2023-03-18 01:04] MED LIST changes: +PROM25TA14 PO
--- NOTE | 2023-03-18 01:33 | ED Headache ---
General Chief Complaint: Head/Cervical Problems Stated Complaint: MIGRAINE Source: patient Exam Limitations: no limitations History of Present Illness Date Seen by Provider: Mar 18, 2023 Time Seen by Provider: 01:28 Initial Comments Patient is a 48-year-old male who presents to the emergency room with a chief complaint of "migraine". Patient states that he and his were just sitting watching TV when he had fairly aggressive onset of frontotemporal headache. He states this headache is very similar to migraines he has had in the past but he has not had one in years. He used to be on Topamax but let the prescription lapse. He denies any recent illnesses such as fevers, chills, cough or congestion. He states nothing really makes the headache any better or worse, he rates it at a "8". He is currently nauseous with a headache. He states he gets some flashing lights in the periphery of his vision as well as what he states is loss of his peripheral vision and tingling/numbness in both arms. He states currently his arms are not numb but they feel "cold". He also states that he feels a little "off balance" with this headache, but that is usual for his migraines. He has a primary care physician in [place] and has seen Dr. Kapadia, neurology in the past. He did take 2 extra strength Tylenol along with 600 mg of ibuprofen at headache onset but has had no relief of symptoms. Timing/Duration: 1-3 hours (3h) Severity/Quality: severe ("8") Location: frontal, temporal Prior Headaches/Recent Trauma: occasional headaches Associated Symptoms: vision changes, other (nausea) Allergies and Home Medications Allergies Uncoded Allergies: neoprene (Allergy, Mild, 01/11/16) Patient Home Medication List Home Medication List Reviewed: Yes Hydrocodone/Acetaminophen (Vicodin 5-300 mg Tablet) 1 Each Tablet, 1-2 TAB PO Q4-6HR PRN for PAIN Prescribed by: YAQUELIN GODINEZ on 01/11/16 9036 Promethazine HCl (Promethazine Tablet) 25 Mg Tablet, 25 MG PO Q6H PRN for NAUSEA/VOMITING Prescribed by: MIKAYLA VERDUZCO on 08/22/20 7482 Review of Systems Review of Systems Constitutional: see HPI Eyes: Decreased Acuity Ears, Nose, Mouth, Throat: no symptoms reported Respiratory: no symptoms reported Cardiovascular: no symptoms reported Gastrointestinal: nausea Genitourinary: no symptoms reported Musculoskeletal: no symptoms reported Skin: no symptoms reported Psychiatric/Neurological: Headache Past Biwtncd-Nveimi-Qqmali Hx Patient Social History Tobacco Use?: No Substance use?: No Alcohol Use?: No Past Medical History Surgeries: Yes (INGUINAL HERNIA) Respiratory: No Cardiac: No Neurological: No Reproductive Disorders: No Genitourinary: No Gastrointestinal: No Musculoskeletal: Yes (FEET) Endocrine: No HEENT: Yes (dental infection) Cancer: No Psychosocial: No Integumentary: No Blood Disorders: No Physical Exam Vital Signs Vital Signs - First Documented 03/18/23 01:15 Temp 36.7 Pulse 95 Resp 16 B/P (MAP) 164/99 (120) Pulse Ox 100 O2 Delivery Room Air Capillary Refill : Height, Weight, BMI Height: 5'9.00" Weight: 245lbs. 0.0oz. [id number]; 39.00 BMI Method:Stated General Appearance: WD/WN, mild distress HEENT: PERRL/EOMI, normal ENT inspection, TMs normal, pharynx normal Neck: full range of motion Cardiovascular: regular rate, rhythm Respiratory: lungs clear, normal breath sounds, no respiratory distress, no accessory muscle use Extremities: normal range of motion, normal inspection Psychiatric: alert, oriented x 3 Crainal Nerves: normal hearing, normal speech, PERRL; No abnormal eye position Coordination/Gait: normal gait, negative Romberg's sign Motor/Sensory: no motor deficit, no sensory deficit, no pronator drift Skin: normal color, warm/dry Progress/Results/Core Measures Results/Orders My Orders Orders - BEAU BLACK MD Ed Iv/Invasive Line Start (03/18/23 01:39) Metoclopramide Injection (Metoclopramide (03/18/23 01:45) Diphenhydramine Injection (Diphenhydram (03/18/23 01:45) Ketorolac Injection (Ketorolac Injection (03/18/23 01:45) Sumatriptan Injection (Sumatriptan Injec (03/18/23 02:45) Medications Given in ED Current Medications Medications Dose Ordered Sig/Moon Route Start Time Stop Time Status Last Admin Dose Admin Diphenhydramine HCl 50 mg ONCE ONCE IVP 03/18/23 01:45 03/18/23 01:46 DC 03/18/23 01:45 50 MG Ketorolac Tromethamine 15 mg ONCE ONCE IVP 03/18/23 01:45 03/18/23 01:46 DC 03/18/23 01:45 15 MG Metoclopramide HCl 5 mg ONCE ONCE IVP 03/18/23 01:45 03/18/23 01:46 DC 03/18/23 01:45 5 MG Sumatriptan Succinate 6 mg ONCE ONCE SQ 03/18/23 02:45 03/18/23 02:46 DC 03/18/23 02:51 6 MG Vital Signs/I&O 03/18/23 01:15 Temp 36.7 Pulse 95 Resp 16 B/P (MAP) 164/99 (120) Pulse Ox 100 O2 Delivery Room Air Progress Progress Note #1: Time: 02:39 Progress Note Patient re-evaluated, he states the medication helped the headache "a little bit". His nausea is gone. Will add some imitrex and see if that relieves his symptoms. Progress Note #2: Time: 03:23 Progress Note Patient seen and evaluated by me. Evaluation today includes history and physical exam. Pertinent physical exam findings well-developed well-nourished male, no acute distress, sitting in a darkened room with his eyes closed. HEENT exam is unremarkable, pupils equal round and reactive to light. Cranial nerves intact. Heart is regular, lungs are clear. Normal motor or sensory function. Negative Romberg. Normal [id number], normal gait. No focal neurologic deficits. Differential diagnosis includes tension headache, migraine Patient is initially treated in the emergency department with an IV and 15 mg of Toradol, 5 mg of Reglan and 50 mg of Benadryl IV. He had relief of his nausea but the headache persisted. He was subsequently given 6 mg of Imitrex subcu. Monitored an additional 45 minutes and had improvement in his symptoms. Suspect this is more tension type headache even though he does endorse some "sparkles" in his vision and visual field effects from his headache. He points to forehead and bitemporal region. This is inconsistent with migrainous type headache. However, he did get relief from triptan so it is still a possibility that this was an atypical migraine. Recommendations to follow-up with his primary care sharyn fontanez for further headache management. Return precautions given in both verbal and written format. All questions are sought and answered. Departure Impression Primary Impression: Migraine Qualified Codes: G43.909 - Migraine, unspecified, not intractable, without status migrainosus Disposition: HOME, SELF-CARE Condition: Improved Departure-Patient Inst. Decision time for Depature: 03:22 Referrals: LISA BRENNER MD (PCP/Family) Primary Care Physician Patient Instructions: Migraines (DC), Home Headache Remedies Add. Discharge Instructions: Drink plenty of fluids to stay well-hydrated. Please follow-up with your primary care provider regarding headache management. Return to the emergency department for any new, concerning or emergent complaints. BEAU BLACK MD Mar 18, 2023 01:33
[2023-03-18] MEDS ORDERED: diphenhydrAMINE INJ 50 MG/ML VIAL IVP ONE (01:45)
[2023-03-18] MEDS ORDERED: KETOROLAC INJ 15 MG/ML VIAL IVP ONE (01:45)
[2023-03-18] MEDS ORDERED: METOCLOPRAMIDE INJ 10 MG/2 ML IVP ONE (01:45)
[2023-03-18] MEDS ORDERED: SUMAtriptan INJECTION 6 MG/0.5 ML SQ ONE (02:45)
[2023-03-18 03:26] VITALS: BP 145/89
== END 2023-03-18 03:26 | disposition home or self-care (01) ==
LOC: EDUNIT# 01:04 → ER 01:07
DX: G43.909 Migraine, unspecified, not intractable, without status migrainosus (principal)